=== PATIENT | male | born 1945 | race Caucasian/White ===

== ENCOUNTER 2020-11-27 06:23 | Inpatient (IN) | payer OTHER ==
[~2020-11-27] VITALS: Ht 185.4 cm; Wt 76.0 kg
[2020-11-27] VITALS (75 sets, daily range): BP systolic 44–145; BP diastolic 15–93
--- NOTE | ~2020-11-27 | EMS ---
[address] [address] EMS Patient Care Report Name: GALE FINCH Room #: REG KRISHAN Garcia#: [id number] Admission: 11/27/20 Attend Phys: Discharge: Date of : 43 Report #: [id number] THIS REPORT FOR: //name// Report Transmitted: 11/27/2020 08:20 EMS Care Summary [facility] MED-ACT Incident [id number] @ 11/27/2020 05:43 Incident Location [facility] [place] [address] Patient GALE FINCH Male, 75 Years 1945 Patient Address [facility] [place] [address] Patient History Behavioral/Psychiatric Disorder,Cancer, Unspecified,Hypertension (HTN),Type 2 Diabetes,Coronary Artery Disease (CAD), Patient Allergies No known allergies, Patient Medications Citalopram, Aspirin, Melatonin, Atorvastatin, Ondansetron, Miralax, Senna, Docusate Sodium, Modafinil, Chief Complaint RESPIRATORY FAILURE, SUSPECTED ASPIRATION Disposition Transported No Lights/[place] Reason Breathing Problem Transported To [address] [address] EMS Patient Care Report Name: GALE FINCH Room #: REG [facility].Allan.#: [id number] Admission: 11/27/20 Attend Phys: Discharge: Date of : 43 Report #: [id number] M1134 IS DISPATCHED AND RESPONDS NOTED. UPON ARRIVAL AT SCENE M1134 HAS DELAY FOR DONNING OF PPE PER PROTOCOL. NEGATIVE PRESSURE ENVIRONMENT CREATED IN PT COMPARTMENT VIA EXHAUST VENT ON HIGH AND CAB HVAC ON FULL FRESH AIR. UPON ARRIVAL AT PT ROOM STAFF ADVISED THAT PT HAD DECLINE IN MENTAL STATUS AND RESPIRATORY STATUS FOLLOWING EMESIS AND ASPIRATION. STAFF STATES THAT PT IS FULL CODE. UPON PT CONTACT PT IS FOUND SUPINE IN BED, NOT ALERT, NOT TRACKING, SHOWING SIGNS OF EXTREME RESPIRATORY DISTRESS TO INCLUDE RETRACTIONS, ACCESSORY MUSCLE USAGE, AUDIBLE RALES, AND TACHYPNEA. STAFF ADVISES THAT PT IS NORMALLY NON-VERBAL BUT OTHERWISE INTERACTIVE. PT IS NOTED TO HAVE SPO2 WITH GOOD WAVEFORM IN MID 50%'S ON NRB SUPPLEMENTAL O2. PT TOLERATES CPAP APPLICATION AND HAS IMMEDIATE INCRASE IN SPO2 INTO MID 60%'S AND CONTINUES TO TREND UPWARDS WITH A MAXIMUM OF 74% SPO2 DURING COURSE OF CARE. 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 PT MONITORED [facility]OUTE. RADIO REPORT CALLED [facility], ADVISED OF PROBABLE IMMINENT INTUBATION NEEDS. UPON ARRIVAL AT [facility], PT MOVED TO ER ROOM 11, PLACED IN BED WITH RAILS UP. PT CARE TRANSFERRED TO ER PHYSICIAN WITH VERBAL REPORT. Initial Vitals @06:00P: 137,R: 40,BP: 113/78,Pain: 0/10,GCS: 9,Temp: 99.5F,SpO2: 65,Revised Trauma: 10, @06:08P: 133,R: 40,BP: 139/81,Pain: 0/10,SpO2: 73, @06:14P: 135,R: 36,BP: 119/80,Pain: 0/10,GCS: 9,Glucose: 195,SpO2: 73,Revised Trauma: 10, @06:18P: 134,R: 32,BP: 129/84,Pain: 0/10,GCS: 10,SpO2: 73,Revised Trauma: 10, @PTAP: 135,R: 40,BP: 122/70,Pain: 0/10,GCS: 9,SpO2: 55,Revised Trauma: 10, Assessments @05:54MENTAL:SKIN:Cyanotic,Hot,Pale,HEENT:Eyes: Right Pupil: 4-mm,Eyes: Left Pupil: 4-mm,LUNG SOUNDS:ABDOMEN:PELVIS//GI:Incontinence,EXTREMITIES:Capillary Refill: Left Upper: < 2 Sec,Capillary Refill: Right Upper: < 2 Sec,PULSE:Radial: 2+ Normal,NEURO: Impression Respiratory Failure Procedures [facility] [address] [place] [address] EMS Patient Care Report Name: GALE FINCH Room #: [facility] KRISHAN Garcia#: [id number] Admission: 11/27/20 Attend Phys: Discharge: Date of : 43 Report #: [id number] @06:0912-Lead ECGResponse: UnchangedSucceeded@06:07Saline Lock 10cc (20 ga) Site: Hand-LeftResponse: UnchangedSucceeded@05:54ALS AssessmentResponse: UnchangedSucceeded@05:59CPAP FlowRate: 25 Response: ImprovedSucceeded@PTAOxygen FlowRate: 15 Device: Non Re-breather Mask (NRB) Response: UnchangedSucceeded Timeline DISPLAY MANAGER,Oxygen FlowRate: 15 Device: Non Re-breather Mask (NRB) Response: UnchangedSucceeded, DISPLAY MANAGER,BP: 122/70 M,PULSE: 135,RR: 40 R,SPO2: 55 Ox,ETCO2: ,BG: ,PAIN: 0,GCS: 9, 05:41,Call Received 05:41,Psap Call 05:43,Dispatched 05:45,En Route 05:49,On Scene 05:54,At Patient 05:54,ALS Assessment,Response: UnchangedSucceeded, 05:59,CPAP FlowRate: 25 Response: ImprovedSucceeded, 06:00,BP: 113/78 M,PULSE: 137,RR: 40 R,SPO2: 65 Ox,ETCO2: ,BG: ,PAIN: 0,GCS: 9, 06:07,Saline Lock 10cc 20 ga Site: Hand-Left,Response: UnchangedSucceeded, 06:08,BP: 139/81 M,PULSE: 133,RR: 40 R,SPO2: 73 Ox,ETCO2: ,BG: ,PAIN: 0,GCS: , 06:09,12-Lead ECG,Response: UnchangedSucceeded, 06:11,Depart Scene 06:14,BP: 119/80 M,PULSE: 135,RR: 36 R,SPO2: 73 Ox,ETCO2: ,B,PAIN: 0,GCS: 9, 06:18,BP: 129/84 M,PULSE: 134,RR: 32 R,SPO2: 73 Ox,ETCO2: ,BG: ,PAIN: 0,GCS: 10, 06:21,At Destination 06:23,Transfer Patient 06:39,Call Closed Disclaimer v1.1 Copyright 2020 [employer] This EMS Care Summary contains data elements from the applicable legal record (which may be displayed differently). It is designed to provide pertinent information for the following purposes: continuity of care, clinical quality, and state data reporting. The complete legal record is available to ED staff and administrators of the receiving hospital in [facility]'s Patient Tracker. All data is provided "as is."
--- NOTE | ~2020-11-27 | HC ---
[facility] [place] [address] [address] CONSULTATION Name: GALE FINCH Room #: 242-P [facility] IN .R.#: [id number] Admission: 11/27/20 Attend Phys: Rashard Del Valle MD Discharge: Date of : 44 Report #: [id number] THIS REPORT FOR: cc: Stacy Barnes MD, Ammar MD Couchonnal, Luis F. MD ~ DATE OF SERVICE: 11/27/2020 CARDIOLOGY CONSULTATION REASON FOR CONSULTATION: Bradycardia. HISTORY OF PRESENT ILLNESS: The patient is a 75-year-old male with a history of prior lymphoma, has been in remission for several years. The patient is currently intubated, sedated and therefore history is mostly obtained from his . 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 The patient was recently hospitalized at [facility] for urinary retention and constipation. He was there for several days and was discharged on Monday to a senior care facility and today they called her saying that he had altered mental status. He was transferred here to the Emergency Room where he was found to be hypotensive, tachycardic, febrile and hypoxic. He was intubated and blood pressure continued to worsen. In the Emergency Room, started on vasopressors and central line was positioned. Initial vitals sats 87, blood pressure 80/30, temperature 39.7, pulse 129 and respirations were 36. The patient has been in the ICU and has required increasing pressors and is currently on Levophed, epinephrine, vasopressin and dopamine. The patient developed worsening hypotension and bradycardia. His initial 12-lead EKG when he presented showed sinus tachycardia with a right bundle branch block and no ischemic changes. He then had a bradycardic response with an EKG showing sinus rosalinda with a first-degree AV block and right bundle-branch block. REVIEW OF SYSTEMS: Unable to obtain. PAST MEDICAL HISTORY: As above. SOCIAL HISTORY: Does not smoke. FAMILY HISTORY: Noncontributory. ALLERGIES: Reviewed. MEDICATIONS: Have been reviewed. PHYSICAL EXAMINATION: GENERAL: He is intubated and sedated with agonal breathing. [facility] [address] [place] [address] CONSULTATION Name: JOSETTEGALE Alyssa Room #: 242-P [facility] IN [facility].#: [id number] Admission: 11/27/20 Attend Phys: Rashard Del Valle MD Discharge: Date of : 44 Report #: [id number] HEENT: Oropharynx is clear. Sclerae are anicteric. NECK: Supple. HEART: Tachycardic and regular with no murmurs. LUNGS: Coarse breath sounds throughout. ABDOMEN: Soft, nontender, nondistended. EXTREMITIES: No clubbing, cyanosis or edema. NEUROLOGIC: Cranial nerves unable to assess. LABORATORY DATA: COVID negative. Urine is with rare wbc's. INR is 1.2. Chemistries: Sodium is 151, potassium 2.6, chloride 122, bicarbonate 17, BUN 29, and creatinine 0.9. Blood gas, lowest pH was 6.8, pCO2 of 83 and pO2 of 50. Repeat ABG: pH is 7.1, pCO2 of 73, pO2 111. CBC: White count is 8, hemoglobin 11, and platelets 197. Chest x-ray shows bilateral infiltrates. CT scan shows possible bilateral pneumonia. EKG is reviewed as above. Head CT with no acute process. ASSESSMENT: 1. Sepsis. 2. Bradycardia. PLAN: The patient is a 75-year-old with severe sepsis requiring multiple vasopressors and had a bradycardic episode. I do not believe this is a primary cardiac arrhythmia abnormality, requiring pacemaker implantation. I think this is more likely from his profound sepsis. I would recommend continued supportive care and I discussed with the that his current condition is very critical and he has high risk for having further arrest in the setting of his severe sepsis. We will continue to follow. By: 1527 31 Ed Vilchis MD /nt
--- NOTE | ~2020-11-27 | HC ---
Formerly [facility] [place] [address] CONSULTATION Name: GALE FINCH Room #: 242-P ADM IN M.R.#: [id number] Admission: 11/27/20 Attend Phys: Rashard Del Valle MD Discharge: Date of : 44 Report #: [id number] THIS REPORT FOR: cc: Stacy Barnes MD, Ammar MD Couchonnal,Ed Rosario MD ~ REASON FOR CONSULTATION: Bradycardia. 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 This is a repeat dictation as it appears my first dictation was lost. The patient was at with urinary obstruction and constipation, was discharged on Monday and went to a senior living facility and then had worsening altered mental status, was brought to the Emergency Room yesterday and was found to be severely hypoxic with respiratory distress and hypotensive. He required multiple vasopressors yesterday and then had a bradycardic episode. Initially, his 12-lead EKG showed sinus tachycardia with preexisting right bundle-branch block. His heart rate eventually improved and he was placed on multiple pressors, most of this H and P is obtained by his . She reports he has no cardiac history. He has had no prior syncopal episodes. REVIEW OF SYSTEMS: Unable to obtain. PAST MEDICAL HISTORY: As above. SOCIAL HISTORY: Noncontributory. FAMILY HISTORY: Noncontributory. ALLERGIES: None. MEDICATIONS: Reviewed. PHYSICAL EXAMINATION: GENERAL: He is intubated and sedated with some agonal breathing on the vent. HEENT: Oropharynx clear. Sclerae are anicteric. NECK: Supple, with no thyromegaly. HEART: Regular rate and rhythm. LUNGS: Clear to auscultation bilaterally. ABDOMEN: Soft, nontender, nondistended with no hepatosplenomegaly. EXTREMITIES: No clubbing, cyanosis or edema. NEUROLOGIC: Cranial nerves not able to examine. Echocardiogram shows normal LV size and function. LABORATORY DATA: Hemoglobin 8, white count 4, platelets 130. Coags 1.2. [facility] [address] [place] [address] CONSULTATION Name: GALE FINCH Alyssa Room #: 242-P [facility] IN [facility].#: [id number] Admission: 11/27/20 Attend Phys: Rashard Del Valle MD Discharge: Date of : 43 Report #: [id number] Chemistries: Sodium 154, potassium 2.3, creatinine 1.5. His initial 12-lead EKG showed sinus tachycardia with right bundle-branch block. His repeat EKG showed sinus bradycardia with a right bundle branch block and a first-degree AV block. ASSESSMENT: 1. Bradycardia. 2. Severe sepsis. PLAN: In summary, the patient is a 75-year-old with severe sepsis requiring multiple vasopressors, who had a bradycardic episode, which was likely a vagal paradoxical response to his sepsis and severe hypotension. I do not think this primary cardiac arrhythmia disorder, warranting pacemaker. I think this is all related to severe sepsis, which needs to be optimized. I discussed with his that the patient is quite critical at this point and aggressive management of his sepsis with antibiotics and vasopressors will be required. We will continue to follow. By: 1205 1713 Ed Vilchis MD /nt
[~2020-11-27 06:23] MED LIST: ADULT LOW DOSE81 MG PO; AVAPRO300 MG; BACTRIM DS TAB1 EACH; MULTIVITAMINS PO
--- NOTE | 2020-11-27 07:07 | NUR ---
SPOKE WITH PT'S . PT HAS NOT HAD COVID, BUT HAS HAD 1 VACCINE. PT WAS SUPPOSED TO GO TO PER HE RECEIVES ALL OF HIS CARE THERE. POC DIS- CUSSED WITH AND EMOTIONAL SUPPORT GIVEN. WILL UPDATE INFO BECOMES AVAILABLE.
[2020-11-27 07:30] LABS: BE(vivo) -7.5 mmol/L (-2 to +3); HCO3 20.1 mmol/L (22.0-26.0); PO2 171.2 mmHg (80.0-100.0); pH 7.223 (7.360-7.450); sO2 98.8 % (92.0-98.0)
[2020-11-27 07:32] LABS: ABSOLUTE NEUTROPHILS 7.6 thou/uL (1.4-8.2); BASOPHILS 0.4 % (0.0-2.0); EOSINOPHILS 0.1 % (0.0-3.0); HEMATOCRIT 35.5 % (42.0-52.0); HEMOGLOBIN 11.1 gm/dL (14.0-18.0); LYMPHOCYTES 6.1 % (24.0-44.0); MCH 30.7 pg (26.0-34.0); MCHC 31.2 g/dL (28.0-37.0); MCV 98.3 fL (80.0-100.0); PLATELET COUNT 197 thou/uL (150-400); POLYS 91.4 % (36.0-66.0); RBC 3.61 mil/uL (4.50-6.00); RDW 18.2 % (10.5-14.5); WBC 8.3 thou/uL (4.0-11.0)
[2020-11-27 07:42] LABS: ANION GAP 10 mmol/L (7-16); BUN 28 mg/dL (7-18); CALCIUM 6.3 mg/dL (8.5-10.1); CHLORIDE 118 mmol/L (98-107); CO2 20 mmol/L (21-32); CREATININE 0.8 mg/dL (0.7-1.3); GLUCOSE 126 mg/dL (74-106); POTASSIUM 3.2 mmol/L (3.5-5.1); SODIUM 148 mmol/L (136-145)
[2020-11-27 07:49] LABS: APTT 24.2 Seconds (24.5-32.8); INR 1.2
[2020-11-27 07:52] LABS: ALBUMIN 1.5 g/dL (3.4-5.0); SGOT 28 U/L (15-37); SGPT 17 U/L (16-63); TOTAL BILIRUBIN 0.4 mg/dL (0.2-1.0); TOTAL PROTEIN 4.8 g/dL (6.4-8.2); TROPONIN-I <0.06 ng/mL (<0.06)
[2020-11-27 08:06] LABS: URINE BILIRUBIN NEGATIVE (Negative); URINE BLOOD 3+ (Negative); URINE CLARITY SL CLOUDY; URINE COLOR YELLOW; URINE GLUCOSE-RANDOM* NEGATIVE (Negative); URINE KETONES NEGATIVE (Negative); URINE LEUKOCYTES-REFLEX TRACE (Negative); URINE NITRITE-REFLEX NEGATIVE (Negative); URINE PROTEIN (DIPSTICK) 2+ (Negative); URINE SPECIFIC GRAVITY 1.025 (1.005-1.035)
[2020-11-27 08:21] LABS: CRYSTALS None Seen /LPF (None Seen); HYALINE CASTS 0-3 Few /LPF (None Seen); SQUAMOUS 0-3 Few /LPF (0-3)
[2020-11-27 08:24] LABS: BACTERIA-REFLEX 1-9 Few /HPF (None Seen); MUCUS 0-3 Light strn/LPF (None Seen); URINE RBC 3-10 Few /HPF (0-2); URINE WBC-REFLEX 0-5 Rare /HPF (0-5)
--- NOTE | 2020-11-27 08:32 | NUR ---
ETOMIDATE 20 MG GIVEN AT 0830
[2020-11-27 10:16] LABS: ANISOCYTOSIS 1+; OVALOCYTES OCCASIONAL
[2020-11-27 13:00] LABS: CREATININE 0.9 mg/dL (0.7-1.3)
[2020-11-27 13:09] LABS: CALCIUM 5.4 mg/dL (8.5-10.1); POTASSIUM 2.6 mmol/L (3.5-5.1)
[2020-11-27 13:46] LABS: BE(vivo) -19.3 mmol/L (-2 to +3); HCO3 15.1 mmol/L (22.0-26.0); sO2 55.5 % (92.0-98.0)
[2020-11-27 13:47] LABS: PCO2 86.1 mmHg (35.0-45.0); pH 6.863 (7.360-7.450)
[2020-11-27 14:39] LABS: CALCIUM 7.1 mg/dL (8.5-10.1); MAGNESIUM 1.7 mg/dL (1.8-2.4)
--- NOTE | 2020-11-27 14:44 | NUR ---
chart review . new to ed today, noted called code when in 242. cm went to see if any family here, his here wilma, active listen and support. ingris with her as well. she requested that we notify dr belle conn that he is here even thought he is off on fridays. cm called and left message for dr belle conn. " he just came to [facility] less 24hr from [facility]. new [place]. not sure about us living there i was going to move in there in week."/ wilma. will cont following as needed for dc needs. MD and bedside staff still in room working with ming.
[2020-11-27 14:45] LABS: BE(vivo) -3.1 mmol/L (-2 to +3); HCO3 26.1 mmol/L (22.0-26.0); PO2 111.2 mmHg (80.0-100.0); pH 7.172 (7.360-7.450); sO2 96.6 % (92.0-98.0)
--- NOTE | 2020-11-27 14:51 | EKG ---
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
--- NOTE | 2020-11-27 14:56 | EKG ---
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
--- NOTE | 2020-11-27 15:21 | 2DMMODE ---
Formerly [facility] [employer] [place] [address] 2 D/M-MODE ECHOCARDIOGRAM Name: GALE FINCH Room #: 242-P ADM IN M.R.#: [id number] Admission: 11/27/20 Attend Phys: Rashard Del Valle MD Discharge: Date of : 44 Report #: [id number] THIS REPORT FOR: cc: Stacy Barnes MD, Ammar MD Lammoglia, Francisco J. MD ~ APPROVED REPORT Study performed: 11/27/2020 14:41:26 EXAM: Comprehensive 2D, Doppler, and color-flow Echocardiogram Patient Location: ICU Room #: 239 Status: STAT BSA: 2.33 HR: 120 bpm BP: 114/68 mmHg Rhythm: Tachycardia Other Information Study Quality: Poor/Only subcostal window. Technically limited study due to patient in ICU, post code, on vent. Flat on back. Indications STAT echo post cardiac arrest. Tricuspid Valve TR Peak Stephan.: 2.78 m/s RAP Estimate: 5.00 mmHg TR Peak Gr.: 31.00 mmHg PA Pressure: 36.00 mmHg Left Ventricle The left ventricle is normal size. Left ventricular systolic function is normal. LVEF is 60-65%. Right Ventricle The right ventricle is normal size. Right ventricle appears hypokinetic. Atria The left atrium size is normal. The right atrium size is normal. [facility] [place] [address] [address] 2 D/M-MODE ECHOCARDIOGRAM Name: GALE FINCH Room #: 242-P ADM IN M.R.#: [id number] Admission: 11/27/20 Attend Phys: aRshard Del Valle MD Discharge: Date of : 44 Report #: [id number] Aortic Valve Aortic valve is calcified. Mitral Valve Mitral valve is not well visualized. Tricuspid Valve The tricuspid valve is normal in structure. Mild tricuspid regurgitation. Estimated PAP is 35-40mmHg. Great Vessels IVC is normal in size and collapses >50% with inspiration. Pericardium There is no pericardial effusion. <Conclusion> The left ventricle is normal size. Left ventricular systolic function is normal. LVEF is 60-65%. The right ventricle is normal size. Aortic valve is calcified. Mitral valve is not well visualized. The tricuspid valve is normal in structure. Mild tricuspid regurgitation. Estimated PAP is 35-40mmHg. There is no pericardial effusion. <ELECTRONICALLY SIGNED> By: Poncho Dickerson MD 11/27/20 1521 152 152 Poncho Dickerson MD /INF
--- NOTE | 2020-11-27 15:30 | NUR ---
1530- 3 HOUR SEPSIS INITIATION- PATIENT POST CODE BLUE CALLED, PHYSICIANS MANAGING GTTS AND FLUID VOLUME RESUSCITATION. Mainly directed by Dr. Mascorro and Dr. Del Valle. See vitals and labs for measures.
[2020-11-27 16:19] LABS: CREATININE 1.5 mg/dL (0.7-1.3)
[2020-11-27 16:23] LABS: BE(vivo) -7.4 mmol/L (-2 to +3); HCO3 21.8 mmol/L (22.0-26.0); PCO2 65.7 mmHg (35.0-45.0); pH 7.138 (7.360-7.450); sO2 86.4 % (92.0-98.0)
[2020-11-27 16:24] LABS: POTASSIUM 2.3 mmol/L (3.5-5.1)
[2020-11-27 16:25] LABS: CALCIUM 5.9 mg/dL (8.5-10.1)
[2020-11-27 16:26] LABS: RBC 2.75 mil/uL (4.50-6.00)
[2020-11-27 16:27] LABS: HEMOGLOBIN 8.7 gm/dL (14.0-18.0); MCH 31.5 pg (26.0-34.0); MCHC 32.2 g/dL (28.0-37.0); RDW 18.2 % (10.5-14.5); WBC 4.1 thou/uL (4.0-11.0)
--- NOTE | 2020-11-27 18:18 | NUR ---
Patients spouse was updated on patients status and plan of care and acuity. She expressed that she talked with the physician and expressed that if the patients heart were going to stop, then we would not bring him back. Nurse did not see an order for this and went into room to talk with her along with her nurse. She again stated that we would let him pass away if his heart were to stop. This was notified to Dr. Mascorro, who expressed to change his code status to DNR.
[2020-11-27 18:33] LABS: CALCIUM 6.4 mg/dL (8.5-10.1); CREATININE 1.6 mg/dL (0.7-1.3)
[2020-11-27 18:43] LABS: POTASSIUM 2.9 mmol/L (3.5-5.1)
--- NOTE | 2020-11-27 20:01 | NUR ---
PT ARRIVED TO FLOOR 1320. HOOKED TO ICU MONITOR SYSTOLIC BP IN 50'S MAXED ON LEVO AND PRECEDEX. 1349 PT LOST PULSE. CODE INITIATED. EPI X3 SODIUM BICARB X3. PULSE REGAINED 1357. GTTS INITIATED AND TITRATED PER PHYSICIAN ORDER @ BEDSIDE BOTH DURING CODE AND POST CODE. ATROPINE FOR BRADYCARDIA @ 1414 @ 1435. PT REMAINS MAXED ON LEVO, VASO, AND ELIZABETH. ALSO ON EPI, AND DOPAMINE. CODE STATUS CHANGED TO NO CODE PER WISHES. PT AT BEDSIDE FOLLOWING NEGATIVE COVID TEST THROUGHOUT ENTIRE AFTERNOON. PT NOT PROGRESSING IN NURSING PLAN OF CARE.
[2020-11-27 20:17] LABS: BE(vivo) -8.8 mmol/L (-2 to +3); HCO3 19.6 mmol/L (22.0-26.0); PCO2 54.3 mmHg (35.0-45.0); pH 7.175 (7.360-7.450); sO2 75.1 % (92.0-98.0)
[2020-11-27 22:25] LABS: HEMATOCRIT 27.9 % (42.0-52.0); HEMOGLOBIN 9.1 gm/dL (14.0-18.0); MCH 31.9 pg (26.0-34.0); MCHC 32.5 g/dL (28.0-37.0); MCV 98.2 fL (80.0-100.0); PLATELET COUNT 103 thou/uL (150-400); RBC 2.84 mil/uL (4.50-6.00); RDW 17.6 % (10.5-14.5)
[2020-11-27 22:33] LABS: BE(vivo) -7.2 mmol/L (-2 to +3); HCO3 21.2 mmol/L (22.0-26.0); PCO2 57.8 mmHg (35.0-45.0); PO2 56.7 mmHg (80.0-100.0); pH 7.183 (7.360-7.450); sO2 81.6 % (92.0-98.0)
[2020-11-27 22:36] LABS: CALCIUM 6.3 mg/dL (8.5-10.1); CREATININE 1.8 mg/dL (0.7-1.3); MAGNESIUM 1.8 mg/dL (1.8-2.4); POTASSIUM 3.2 mmol/L (3.5-5.1); TOTAL BILIRUBIN 0.5 mg/dL (0.2-1.0); TOTAL PROTEIN 4.4 g/dL (6.4-8.2)
[2020-11-27 23:25] LABS: CORRECTED WBC 7.8 thou/uL (4.0-11.0); NUCLEATED RBCS 15 /100WBC
[2020-11-27 23:26] LABS: ANISOCYTOSIS 1+; LARGE PLATELETS FEW; PLATELET ESTIMATE DECREASED
[2020-11-28] VITALS (48 sets, daily range): BP systolic 57–140; BP diastolic 29–98
[2020-11-28 05:11] LABS: BE(vivo) -7.1 mmol/L (-2 to +3); HCO3 21.8 mmol/L (22.0-26.0); PCO2 62.4 mmHg (35.0-45.0); PO2 79.2 mmHg (80.0-100.0); pH 7.162 (7.360-7.450); sO2 91.9 % (92.0-98.0)
[2020-11-28 05:30] LABS: HEMATOCRIT 29.3 % (42.0-52.0); HEMOGLOBIN 9.2 gm/dL (14.0-18.0); MCH 30.8 pg (26.0-34.0); MCHC 31.3 g/dL (28.0-37.0); MCV 98.4 fL (80.0-100.0); RBC 2.97 mil/uL (4.50-6.00); RDW 18.3 % (10.5-14.5); WBC 16.2 thou/uL (4.0-11.0)
--- NOTE | 2020-11-28 05:35 | NUR ---
Patient criticallly ill throughout the shift. Currently maxed out on Vasopressin, Levophed, Epinephrine, Norepinephrine, Dopamine is at 10 mcg/kg/min. IVF with bicarb infusing. HR has mostly been from 118-123 steady sinus tach. Have been replacing potassium per potassium replacement protocol. Patient continues to be nonresponsive. No sedation infusing. Morphine 2 mg given x1 to try and ease work or breathing. Morphine did not have any effect. IV lasix given per orders. Marginal U/O. Called critical labs to Dr. Mascorro. See documentation on interventions for details. stayed till late in the evening. Her son was flying into [facility] this evening so she went home. Unit phone number given. She did call once overnight. Update given. Awaiting am lab resutls. Will review with Dr. Mascorro. Patient is not progressing towards goals.
[2020-11-28 05:46] LABS: CALCIUM 6.3 mg/dL (8.5-10.1)
[2020-11-28 10:12] LABS: BE(vivo) -6.4 mmol/L (-2 to +3); HCO3 22.1 mmol/L (22.0-26.0); PCO2 60.3 mmHg (35.0-45.0); PO2 103.5 mmHg (80.0-100.0); pH 7.181 (7.360-7.450); sO2 96.2 % (92.0-98.0)
[2020-11-28 10:18] LABS: CALCIUM 6.3 mg/dL (8.5-10.1); CREATININE 2.2 mg/dL (0.7-1.3); POTASSIUM 3.9 mmol/L (3.5-5.1)
[2020-11-28 11:15] LABS: ABSOLUTE NEUTROPHILS 6.9 thou/uL (1.4-8.2)
[2020-11-28 11:16] LABS: METAMYELOCYTES 2 %; MYELOCYTES 2 %
[2020-11-28 11:19] LABS: POIKILOCYTOSIS SLIGHT
[2020-11-28 13:23] LABS: CREATININE 2.3 mg/dL (0.7-1.3); POTASSIUM 3.8 mmol/L (3.5-5.1)
[2020-11-28 14:54] LABS: BE(vivo) -5.7 mmol/L (-2 to +3); HCO3 21.1 mmol/L (22.0-26.0); PCO2 47.9 mmHg (35.0-45.0); PO2 161.5 mmHg (80.0-100.0); pH 7.261 (7.360-7.450); sO2 98.8 % (92.0-98.0)
--- NOTE | 2020-11-28 19:36 | NUR ---
0700 ASSUMED CARE. ABLE TO TITRATE OFF DOWN ON PRESSORS TODAY. URINE OUTPUT CONTINUES TO BE MARGINAL. PROVIDER AWARE.. FAMILY AT BEDSIDE [phone]. OVERALL, STILL NOT PROGRESSING IN PLAN OF CARE.
[2020-11-29] VITALS (13 sets, daily range): BP systolic 79–103; BP diastolic 46–57
[2020-11-29 04:27] LABS: HCO3 21.9 mmol/L (22.0-26.0); PCO2 58.5 mmHg (35.0-45.0); PO2 64.8 mmHg (80.0-100.0); sO2 87.1 % (92.0-98.0)
[2020-11-29 04:29] LABS: pH 7.191 (7.360-7.450)
[2020-11-29 04:49] LABS: MCH 30.5 pg (26.0-34.0); RBC 2.19 mil/uL (4.50-6.00)
[2020-11-29 04:51] LABS: HEMATOCRIT 21.1 % (42.0-52.0); MCHC 31.6 g/dL (28.0-37.0); MCV 96.4 fL (80.0-100.0); WBC 23.1 thou/uL (4.0-11.0)
[2020-11-29 05:10] LABS: HEMOGLOBIN 6.7 gm/dL (14.0-18.0)
[2020-11-29 05:11] LABS: CREATININE 2.8 mg/dL (0.7-1.3); POTASSIUM 4.5 mmol/L (3.5-5.1)
[2020-11-29 05:15] LABS: CALCIUM 5.7 mg/dL (8.5-10.1)
--- NOTE | 2020-11-29 07:20 | NUR ---
Patient fairly stable through the night. Was able to titrate down the Ciro and was able to turn off the epi. Respiratory was able to titrate down the Fio2 a little bit. Versed and Fentanyl was able to be infused at low rates to provide comfort. This am, labs came back. Hgb low. Called and got orders for transfusion. Spoke to and got consent over the phone. Lab came up to band for type and screen. Just after I got the blood from the patient's line, I looked up at the monitor and he was asystole with a flat arterial line. Patient's pronounced by 2 RN's as the patient was DNR. Called the and let her know. She will be up soon. [place] [facility] called. Patient is not a candidate for anything.
--- NOTE | 2020-11-30 14:32 | HC ---
[facility] [place] [address] CONSULTATION Name: GALE FINCH Room #: 242-P [facility] IN M.R.#: [id number] Admission: 11/27/20 Attend Phys: Rashard Del Valle MD Discharge: 11/29/20 Date of : 43 Report #: [id number] THIS REPORT FOR: cc: Stacy Barnes MD, Ammar MD Geha,Wood Villalobos MD ~ DATE OF SERVICE: 11/27/2020 INFECTIOUS DISEASE CONSULTATION REASON FOR CONSULTATION: I was asked to evaluate concerning septic shock. HISTORY OF PRESENT ILLNESS: The patient is a 75-year-old with underlying lymphoma, who completed his induction chemotherapy program and was found to have had a good response in remission as of 2 months ago. He remains on rituximab. Over the last several weeks, he has had a decline with constipation and concerns for aspiration. He had been hospitalized at [facility]. During that hospitalization, he underwent a PEG tube placement by Interventional Radiology. He was dismissed 3 days ago to [facility] unit. While there, did fairly well for the first 24 hours. They were using his PEG tube for feeding. He had the acute onset of change in status with decreased mental status and hypoxia. Presented through the Emergency Room in respiratory distress. He was intubated and placed in Intensive Care Unit. Subsequently, went into PEA and required resuscitative measures. He is now on 100% FiO2. He is encephalopathic on 3 vasopressors. He has had no urine output. I have discussed the case with the patient's in detail as well as respiratory therapy, nursing staff. There was some concern that the patient had aspirated as he had a significant amount of NG return. REVIEW OF SYSTEMS: A 14-point review of system was negative other than what has been described above. The patient could not give any further details. PAST MEDICAL HISTORY: Lymphoma, hypertension, PEG tube placement. ALLERGIES: None. MEDICATIONS: As noted on his MAR, previously on Bactrim and rituximab as well as aspirin, multivitamin, and Avapro. Now on vancomycin and Zosyn. FAMILY HISTORY: Noncontributory. 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 PHYSICAL EXAMINATION: VITAL SIGNS: Initial temperature 103.5 degrees earlier this morning. He is [address] [address] CONSULTATION Name: GALE FINCH Room #: 242-P [facility]#: [id number] Admission: 11/27/20 Attend Phys: Rashard Del Valle MD Discharge: 11/29/20 Date of : 43 Report #: [id number] tachycardic, rate 120, blood pressure 88/50 with an O2 saturation 89%, on 100% FiO2. He has a MAP of 52 on combination vasopressors. GENERAL: He has cool extremities and mottled. HEENT: Eyes without scleral icterus or conjunctivitis. Pupils were sluggish, but reactive to light. Mouth without mucositis. He was orally intubated, right IJ catheter in place. Left wrist art line in place without drainage. NECK: Supple. The patient did not respond to painful stimulus. Had intermittent spontaneous movement of his face and left arm and myoclonic jerk activity. LUNGS: Coarse breath sounds bilaterally with consolidation in the left posterior chest. HEART: Tachycardic and regular. ABDOMEN: Soft, without appreciable mass or hepatosplenomegaly. EXTREMITIES: Without edema. LABORATORY STUDIES: Reviewed. CT scan of the chest reviewed. CT of the head reviewed with chronic small vessel ischemic change. IMPRESSION: 1. Septic shock with multisystem failure, status post PEA cardiac arrest, now on combination supportive measures including vasopressors and ventilatory support. I am suspecting aspiration pneumonitis at the onset. 2. Lymphoma, on chemotherapy program. 3. Underlying hypertension. RECOMMENDATION: We will continue broad antibiotic coverage pending culture results. I have discussed with the patient's in detail regarding plan of care. I feel it would be most reasonable to maintain at his current level without further resuscitative measures. The patient should code again. We will see how he responds over the next several hours. Currently, he is anuric. [place] for survival is very poor at this point. <ELECTRONICALLY SIGNED> By: Wood Ly MD 11/30/20 [id number] Wood Ly MD /nt
== END 2020-11-29 04:45 | DRG 871 ==
LOC: ER 06:23 → EROBS 12:14 → ICU 12:14
PROVIDERS: Emergency Medicine; Internal Medicine Pulmonary Disease; ADMIT Hospitalist; ATTEND Hospitalist
PROC: 0BH17EZ Insertion of Endotracheal Airway into Trachea, Via Natural or Artificial Opening (ICD-10-PCS; principal; 2020-11-27)
PROC: 5A1945Z Respiratory Ventilation, 24-96 Consecutive Hours (ICD-10-PCS; principal; 2020-11-27)
PROC: 02HV33Z Insertion of Infusion Device into Superior Vena Cava, Percutaneous Approach (ICD-10-PCS; principal; 2020-11-27)
PROC: 5A12012 Performance of Cardiac Output, Single, Manual (ICD-10-PCS; principal; 2020-11-27)
DX: A41.9 Sepsis, unspecified organism (principal); J69.0 Pneumonitis due to inhalation of food and vomit; J96.01 Acute respiratory failure with hypoxia; E43 Unspecified severe protein-calorie malnutrition; R65.21 Severe sepsis with septic shock; J96.02 Acute respiratory failure with hypercapnia; N17.0 Acute kidney failure with tubular necrosis; C85.10 Unspecified B-cell lymphoma, unspecified site; K55.9 Vascular disorder of intestine, unspecified; G81.91 Hemiplegia, unspecified affecting right dominant side; I46.9 Cardiac arrest, cause unspecified; I10 Essential (primary) hypertension; I95.9 Hypotension, unspecified; F39 Unspecified mood [affective] disorder; I25.10 Atherosclerotic heart disease of native coronary artery without angina pectoris; E11.51 Type 2 diabetes mellitus with diabetic peripheral angiopathy without gangrene; G83.81 Brown-Sequard syndrome; Z66 Do not resuscitate; Z20.822 Contact with and (suspected) exposure to COVID-19; Z68.22 Body mass index [BMI] 22.0-22.9, adult; Z92.21 Personal history of antineoplastic chemotherapy; Z79.82 Long term (current) use of aspirin; Z79.899 Other long term (current) drug therapy
CPT/HCPCS: 10078; 62110; 62900; 65040